=== PATIENT | male | born 1990 | race Caucasian/White ===

== ENCOUNTER 2016-06-12 08:03 | Emergency (ER) | payer OTHER ==
[~2016-06-12 08:03] MED LIST: AUGMENTIN875 MG PO; CIPRO PO; ERYTHROMYC3.5 GM OPT OD; KEFLEX500 M1 PO; LORTAB 7.5-5001 TAB PO; MAGIC MOUTHWASH PO; NO MEDICATIONS; NORCO1 TAB 10/3 PO; PERCOCET 5-3251 TAB PO; PHENERGAN25 M1 PO; PYRIDIUM100 MG PO; VOLTAREN75 MG PO
[2016-06-12] MEDS ORDERED: PROMETHAZINE D118 ML PO (08:05)
[2016-06-12] MEDS ORDERED: BENZONATATE PO (08:05)
[2016-06-12] MEDS ORDERED: FLONASE 0.05% N16 G1 INH (08:06)
[2016-06-12] MEDS ORDERED: ZITHROMAX (08:06)
== END 2016-06-12 08:11 | disposition home or self-care (01) ==
LOC: SED 08:03
DX: J11.1 Influenza due to unidentified influenza virus with other respiratory manifestations (principal); H66.92 Otitis media, unspecified, left ear; F17.200 Nicotine dependence, unspecified, uncomplicated
CPT/HCPCS: 99282